=== PATIENT | female | born 1960 | race Caucasian/White ===

== ENCOUNTER → 2016-12-15 | Outpatient (CLI) | payer OTHER ==
--- NOTE | 2016-12-15 11:16 | REPMRS ---
Patient History The patient states she has not had a clinical breast exam in over a year. Patient is postmenopausal. No known family history of cancer. Patient states she had a bilateral breast reduction 5 years ago. [facility] Digital Mammo Screening Bilat: December 15, 2016 - Exam #: [id number] Bilateral CC and MLO view(s) were taken. Technologist: Lilli Erickson Technologist Prior study comparison: October 22, 2015, digital bilateral screening mammo, performed at [facility]. February 18, 2014, digital bilateral screening mammo, performed at [facility]. FINDINGS: The breast tissue is almost entirely fat. There has been no change in the appearance of the mammogram from the prior studies. There is no interval development of dominant mass, architectural distortion, or clustered microcalcification typical of malignancy. ASSESSMENT: BI-RADS/ACR category 1 mammogram. Negative. Recommendation Routine screening mammogram of both breasts in 1 year (for women over age 40). This mammogram was interpreted with the aid of an FDA-approved computer-aided dectection system. Electronically Signed By: Jeremy Tompkins MD 12/15/16 [id number]
== END ==
LOC: M RAD 09:39
PROVIDERS: ATTEND Family Medicine
DX: Z12.31 Encounter for screening mammogram for malignant neoplasm of breast (principal)

== ENCOUNTER → 2017-12-30 | Outpatient (CLI) | payer OTHER | LOC: M RAD 14:23 | DX: Z12.31 Encounter for screening mammogram for malignant neoplasm of breast (principal) | CPT/HCPCS: 77067 ==

== ENCOUNTER → 2019-02-27 | Outpatient (CLI) | payer OTHER ==
--- NOTE | 2019-02-27 10:58 | REPMRS ---
Patient History The patient states she has not had a clinical breast exam in over a year. No known family history of cancer. Digital Mammo Screening Bilat: February 27, 2019 - Exam #: [id number] Bilateral CC and MLO view(s) were taken. Technologist: Tracie Chino, Technologist Prior study comparison: December 30, 2017, bilateral digital mammo screening bilat performed at [facility]. December 15, 2016, bilateral digital mammo screening bilat performed at [facility]. FINDINGS: The breast tissue is almost entirely fat. There has been no change in the appearance of the mammogram from the prior studies. There is no interval development of dominant mass, architectural distortion, or clustered microcalcification typical of malignancy. Assessment: BI-RADS/ACR category 1 mammogram. Negative Mammogram. Recommendation Routine screening mammogram of both breasts in 1 year (for women over age 40). This patient's Lifetime Breast Cancer RIsk is estimated at 6.9 %. This mammogram was interpreted with the aid of an FDA-approved computer-aided dectection system. Electronically Signed By: Jeremy Tompkins MD 02/27/19 [id number]
== END ==
LOC: M RAD 09:23
PROVIDERS: ATTEND Internal Medicine
DX: Z12.31 Encounter for screening mammogram for malignant neoplasm of breast (principal)

== ENCOUNTER 2019-04-16 06:56 | Day surgery (SDC) | payer OTHER ==
[~2019-04-16] VITALS: Ht 172.7 cm; Wt 84.5 kg
[~2019-04-16 06:56] MED LIST: ASPI81TA26 PO; CELE1CAP9 PO; CLAR10CA3 PO; EPIN0.3I11; KP F1200 PO; MAGN400T PO; REST0.05 OU; VITA1CAP25
[2019-04-16] MEDS ORDERED: NS 1,000 ML IV ONE (07:00)
[2019-04-16] MEDS ORDERED: PROPOFOL 200 MG/20 ML VIAL As Ordered ONE ×2 (07:53→07:59)
[2019-04-16] MEDS ORDERED: LIDOCAINE 2% INJ 100 MG/5 ML SDV (FOR ANES.) As Ordered ONE (07:53)
--- NOTE | 2019-04-16 08:11 | ROOR ---
Patient Name: Kayce aZyas Procedure Date: 04/16/2019 7:46 AM Date of : 1960 Age: 59 Room: [facility] Gender: Female Note Status: Finalized Procedure: Total Colonoscopy to Cecum + ileoscopy Indications: Colon cancer screening in patient at increased risk: Family history of 1st-degree relative with colon polyps Providers: Jared Kessler MD Referring MD: PRETTY OLSEN MD Devvictorina Asher Requesting Provider: Medicines: Monitored Anesthesia Care Complications: No immediate complications. Procedure: Pre-Anesthesia Assessment: - The heart rate, respiratory rate, oxygen saturations, blood pressure, adequacy of pulmonary ventilation, and response to care were monitored throughout the procedure. The Colonoscope was introduced through the anus and advanced to the terminal ileum, with identification of the appendiceal orifice and IC valve. The colonoscopy was performed without difficulty. The patient tolerated the procedure well. The quality of the bowel preparation was excellent. Findings: The perianal and digital rectal examinations were normal. Non-bleeding internal hemorrhoids were found during retroflexion. The hemorrhoids were small and Grade I (internal hemorrhoids that do not prolapse). No other significant abnormalities were identified in a careful examination of the remainder of the colon. The remainder of the exam in the terminal ileum was normal. The cecum appeared normal. Impression: - Non-bleeding internal hemorrhoids. - The cecum is normal. - No specimens collected. - The examined portion of the ileum was normal. Recommendation: - Patient has a contact number available for emergencies. The signs and symptoms of potential delayed complications were discussed with the patient. Return to normal activities tomorrow. Written discharge instructions were provided to the patient. - High fiber diet. - Discharge patient to home. - Continue present medications. - Repeat colonoscopy in 5 years for screening purposes. - Return to referring physician. - The findings and recommendations were discussed with the patient's family. Jared Kessler MD Jared Kessler MD 04/16/2019 8:11:03 AM Electronically signed by Jared Kessler MD Number of Addenda: 0 Note Initiated On: 04/16/2019 7:46 AM Estimated Blood Loss: Estimated blood loss: none.
[2019-04-16 08:30] VITALS: BP 152/80
== END 2019-04-16 08:33 | disposition home or self-care (01) ==
LOC: M OPP 06:56
PROVIDERS: ATTEND Internal Medicine Gastroenterology
DX: K64.0 First degree hemorrhoids (principal); Z12.11 Encounter for screening for malignant neoplasm of colon; Z83.71 Family history of colonic polyps

== ENCOUNTER → 2019-04-24 | Outpatient (CLI) | payer OTHER ==
--- NOTE | 2019-04-24 23:29 | REP ---
Clinical: Thoracic aortic aneurysm. Technique: Axial noncontrast images from the thoracic inlet to the upper abdomen with coronal and sagittal re-formations. Findings: Lung duncan demonstrate very minimal basilar interstitial changes and trace lingular fibro atelectatic change. No focal consolidation, significant nodule, or mass lesion. No pleural effusion. No pneumothorax. Ascending thoracic aorta measures 3.8 cm maximal diameter. No significant atherosclerotic changes to the thoracic aorta or coronary arteries noted. No cardiomegaly. No pericardial effusion. No obvious adenopathy. Surrounding musculoskeletal structures demonstrate age-related changes without focal osseous abnormality. Limited upper abdomen demonstrates normal bilateral adrenal glands. Impression: 1. Ascending thoracic aorta measures 3.8 cm maximal diameter. 2. No acute mediastinal or pleuroparenchymal process appreciated. Electronically Signed by Chad Bangura MD 04/24/2019 11:21 P
== END ==
LOC: M RAD 16:29
PROVIDERS: ATTEND Internal Medicine Cardiovascular Disease
DX: Z86.79 Personal history of other diseases of the circulatory system (principal)

== ENCOUNTER 2019-05-08 08:56 | Day surgery (SDC) | payer OTHER ==
[~2019-05-08] VITALS: Ht 172.7 cm; Wt 85.3 kg
[2019-05-08 09:27] LABS: HEMATOCRIT 42.8 % (36.0-47.0); HEMOGLOBIN 14.6 g/dl (12.0-15.5); MEAN CORPUSCULAR HEMOGLOBIN 32.3 pg (27.0-33.0); MEAN CORPUSCULAR HGB CONC 34.1 g/dl (32.0-36.5); MEAN CORPUSCULAR VOLUME 94.7 fl (80.0-96.0); PLATELET COUNT, AUTOMATED 255 10^3/uL (150-450); RED BLOOD COUNT 4.52 10^6/uL (4.00-5.40); WHITE BLOOD COUNT 4.8 10^3/uL (4.0-10.0)
[2019-05-08] MEDS: LR 1,000 ML IV ONE (10:07)
[2019-05-08 10:09] LABS: HCG, SERUM QUALITATIVE NEGATIVE (NEGATIVE)
[2019-05-08] MEDS ORDERED: KETOROLAC 60 MG/2 ML VIAL (J1885) As Ordered ONE (13:04)
[2019-05-08] MEDS ORDERED: MIDAZOLAM INJ 2 MG/2 ML VIAL (J2250) As Ordered ONE (13:04)
[2019-05-08] MEDS ORDERED: dexameTHASONE 4 MG/ML 1ML VIAL (J1100) As Ordered ONE (13:04)
[2019-05-08] MEDS ORDERED: PROPOFOL 200 MG/20 ML VIAL As Ordered ONE (13:04)
[2019-05-08] MEDS ORDERED: fentaNYL 250 MCG/5 ML INJECTION (J3010) As Ordered ONE (13:04)
[2019-05-08] MEDS ORDERED: LIDOCAINE 2% INJ 100 MG/5 ML SDV (FOR ANES.) As Ordered ONE (13:04)
[2019-05-08] MEDS ORDERED: ONDANSETRON 4MG/2ML VIAL (J2405) As Ordered ONE (13:04)
[2019-05-08] MEDS: LIDOCAINE W/EPINEPHRINE 1% 20ML VIAL As Ordered ONE (13:15)
[2019-05-08] MEDS ORDERED: PERCOCET 5MG/325MG TAB As Ordered ONE (13:39)
[2019-05-08] MEDS: PERCOCET 5MG/325MG TAB PO PRN (13:40)
[2019-05-08] MEDS ORDERED: KETOROLAC 30 MG/ML VIAL (J1885) IV ONE (13:45)
[2019-05-08] MEDS ORDERED: PERCOCET 5MG/325MG TAB PO PRN (13:45)
[2019-05-08] MEDS ORDERED: METOCLOPRAMIDE INJ 10MG/2ML VIAL (J2765) IV PRN (13:45)
[2019-05-08] MEDS ORDERED: fentaNYL 100 MCG/2 ML INJECTION (J3010) IV PRN (13:45)
[2019-05-08] MEDS ORDERED: ONDANSETRON 4MG/2ML VIAL (J2405) IV PRN (13:45)
[2019-05-08] MEDS ORDERED: LR 1,000 ML IV SCH (13:45)
[2019-05-08 13:55] VITALS: BP 155/88
--- NOTE | 2019-05-10 08:18 | RO ---
DATE OF PROCEDURE: 05/08/2019 PREOPERATIVE DIAGNOSIS: Persistent cervical dysplasia. POSTOPERATIVE DIAGNOSIS: Persistent cervical dysplasia. PROCEDURE: Loop electrosurgical excision procedure. SURGEON: Dr. Fernandes MEDICAL RECEPTIONIST BILLER: None. ANESTHESIA: Monitored anesthesia care (MAC). FLUIDS: 600 mL lactated Ringer (LR). URINE OUTPUT: 20 mL. ESTIMATED BLOOD LOSS (EBL): 3 mL. COMPLICATIONS: None. ANTIBIOTICS: None indicated. DETAILED PROCEDURE DESCRIPTION: The risks, benefits, indications, and alternatives of the procedure were reviewed with the patient and informed consent was obtained. The patient was taken to the operating room where intravenous (IV) sedation was obtained without difficulty. The patient was then placed in lithotomy position using Sina stirrups. The patient was then prepped and draped in the usual sterile fashion, and the bladder was drained using an in and out catheter. A sterile Graves speculum was then placed into the vagina. The cervix was visualized. A paracervical block was then performed using approximately 10 mL of lidocaine with epinephrine. Lugol's solution was then copiously applied to the cervix and highlighted a lesion from the 4 to 7 o'clock position of the cervix as well as at the 12 o'clock position of the cervix. The LEEP device was then set to 60/60 blend and activated. The loop electrocautery wire was passed across the anterior cervical os with a single pass. Adequate tissue sample was obtained and sent to pathology for review and tagged the 12 o'clock position. Another pass of the loop electrocautery wire was then sent across the posterior ectocervical os and an adequate sample was then collected and sent to pathology for review. Superficial electrocoagulation of the cervical stroma was then performed and excellent hemostasis achieved. Monsel solution was then applied to the cervix. All instruments were then removed from the patient's vagina. At the completion of the case the sponge, instrument, and needle counts were correct times two. The patient tolerated the procedure well and was discharged home in stable condition. JOEY
== END 2019-05-08 14:15 | disposition home or self-care (01) ==
LOC: M SDC 08:56
PROVIDERS: ATTEND Obstetrics & Gynecology
DX: N87.0 Mild cervical dysplasia (principal); I77.89 Other specified disorders of arteries and arterioles; Z79.899 Other long term (current) drug therapy; Z79.82 Long term (current) use of aspirin; Z91.030 Bee allergy status
CPT/HCPCS: 36415; 57461; 84703; 85027; 88307; J1100; J1885; J2250; J2405; J3010

== ENCOUNTER 2019-05-11 09:09 | Emergency (ER) | payer OTHER ==
[~2019-05-11] VITALS: Ht 172.7 cm; Wt 86.6 kg
[2019-05-11 09:09] VITALS: BP 142/89
[2019-05-11] MEDS ORDERED: KEFL500C17 PO (10:13)
== END 2019-05-11 10:19 | disposition home or self-care (01) ==
LOC: M ED 09:09
DX: S60.222A Contusion of left hand, initial encounter (principal); X58.XXXA Exposure to other specified factors, initial encounter; Y92.9 Unspecified place or not applicable; Y93.9 Activity, unspecified; Y99.9 Unspecified external cause status; K21.9 Gastro-esophageal reflux disease without esophagitis; Z79.82 Long term (current) use of aspirin; Z79.899 Other long term (current) drug therapy; Z91.030 Bee allergy status

== ENCOUNTER → 2021-02-20 | Outpatient (CLI) | payer OTHER ==
[~2021-02-20] MED LIST changes: +KEFL500C17 PO; -MAGN400T PO; +MAGN400T3 PO
--- NOTE | 2021-02-23 08:46 | REPMRS ---
Patient History The patient states she has not had a clinical breast exam in over a year. Patient is postmenopausal. No known family history of cancer. Reductions of both breasts, 2010. No Hormone Replacement Therapy Patient states no breast complaints today. Patient has signed MRS History Sheet. Digital Woman Screen Mammo: February 20, 2021 - Exam #: [id number] Bilateral CC and MLO view(s) were taken. Technologist: Ana Johns, Technologist Prior study comparison: February 27, 2019, bilateral digital mammo screening bilat, performed at [facility]. December 30, 2017, bilateral digital mammo screening bilat, performed at [facility]. FINDINGS: There are scattered fibroglandular densities. Screening. Digital screening (2D) mammography was performed bilaterally in the CC and MLO projections. Additionally, breast tomosynthesis (3D mammography) was performed bilaterally in the CC and MLO projections. Todays exam was compared to the prior exams(s). By history, the patient has no complaints of a palpable breast abnormality or other significant breast complaints. The breasts are unchanged in size and shape. There are no kevin-soft tissue densities or spiculated masses. There is no internal architectural distortion. Once again, stable benign appearing calcifications are seen.There are no suspicious kevin-calcific clusters. Skin thickening or nipple retraction is not present. IMPRESSION: BI-RADS Category 2- Benign Findings(s). There is no evidence of malignant alteration of the breasts. Followup examination recommended in one year. The Volpara volumetric breast density category is B, there are scattered areas of fibroglandular density. This mammogram was read with the assistance of myQaa,an FDA approved computer aided detection system for mammography. Negative x-ray reports should not delay surgical consultation if a dominant or clinically suspicious mass is present. The lifetime Tyrer-Cuzick score is 6.4% Not all breast cancers can be identified by mammography. Therefore, we recommend that you continue to perform regular breast self-examination and physical examination and then promptly contact your physician of any concerns or changes. Adenosis and dense breasts may obscure an underlying neoplasm. Assessment: BI-RADS/ACR category 2 mammogram. Benign Findings. Recommendation Routine screening mammogram of both breasts in 1 year. Electronically Signed By: Dev Mar DO 02/23/21 [id number]
== END ==
LOC: M WHC 14:02
PROVIDERS: ATTEND Emergency Medicine
DX: Z12.31 Encounter for screening mammogram for malignant neoplasm of breast (principal)

== ENCOUNTER 2021-07-14 05:57 | Day surgery (SDC) | payer OTHER ==
[~2021-07-14] VITALS: Ht 172.7 cm; Wt 81.6 kg
[~2021-07-14 05:57] MED LIST changes: +ALEV220T22 PO; +BIOT1000 PO; +POTA595T16 PO; +VITATAB74 PO; +ZINC1TAB2 PO
[2021-07-14] MEDS ORDERED: ACETAMINOPHEN 500 MG TAB PO SCH (06:00)
[2021-07-14] MEDS ORDERED: ACETAMINOPHEN *IV* 1,000 MG IV ONE ×2 (06:00)
[2021-07-14] MEDS ORDERED: IBUPROFEN 800 MG TAB PO SCH (06:00)
[2021-07-14] MEDS ORDERED: LR 1,000 ML IV ONE (06:00)
[2021-07-14] MEDS ORDERED: LIDOCAINE 1% MDV 20ML VIAL SQ PRN (06:00)
[2021-07-14 06:27] LABS: HEMATOCRIT 43.9 % (36.0-47.0); MEAN CORPUSCULAR HEMOGLOBIN 33.3 pg (27.0-33.0); MEAN CORPUSCULAR HGB CONC 34.2 g/dl (32.0-36.5); MEAN CORPUSCULAR VOLUME 97.6 fl (80.0-96.0); PLATELET COUNT, AUTOMATED 272 10^3/uL (150-450); WHITE BLOOD COUNT 5.7 10^3/uL (4.0-10.0)
[2021-07-14 07:00] LABS: ALBUMIN 3.5 GM/DL (3.2-5.2); ALT/SGPT 24 U/L (12-78); BILIRUBIN,TOTAL 0.5 MG/DL (0.2-1.0); BLOOD UREA NITROGEN 15 MG/DL (7-18); CARBON DIOXIDE LEVEL 27 MEQ/L (21-32); CHLORIDE LEVEL 113 MEQ/L (98-107); CREATININE FOR GFR 0.84 MG/DL (0.55-1.30); GLOMERULAR FILTRATION RATE > 60.0 (>45); GLUCOSE, FASTING 94 MG/DL (70-100); POTASSIUM SERUM 4.1 MEQ/L (3.5-5.1); SODIUM LEVEL 144 MEQ/L (136-145); TOTAL PROTEIN 7.1 GM/DL (6.4-8.2)
[2021-07-14] MEDS ORDERED: LIDOCAINE W/EPINEPHRINE 1% 20ML VIAL As Ordered ONE ×3 (07:08→07:11)
[2021-07-14] MEDS ORDERED: IODINE STRONG SOLN 15 ML BTL As Ordered ONE (07:12)
[2021-07-14] MEDS ORDERED: fentaNYL 100 MCG/2 ML INJECTION (J3010) As Ordered ONE (07:54)
[2021-07-14] MEDS ORDERED: dexameTHASONE 4 MG/ML 1ML VIAL (J1100 PER 1MG) As Ordered ONE (07:54)
[2021-07-14] MEDS ORDERED: ACETAMINOPHEN 1000MG 100ML IV BTL (OFIRMEV) (J0131 PER 10MG) As Ordered ONE (07:54)
[2021-07-14] MEDS ORDERED: propofoL 200 MG/20 ML VIAL As Ordered ONE (07:54)
[2021-07-14] MEDS ORDERED: LIDOCAINE 2% 100MG/5ML SDV (FOR ANES.) As Ordered ONE (07:54)
[2021-07-14] MEDS ORDERED: MIDAZOLAM INJ 2MG/2ML VIAL (J2250 PER 1MG) As Ordered ONE (07:54)
[2021-07-14] MEDS ORDERED: KETOROLAC 60MG 2ML VIAL As Ordered ONE (07:54)
[2021-07-14] MEDS ORDERED: ONDANSETRON 4MG/2ML VIAL As Ordered ONE (07:54)
[2021-07-14] MEDS ORDERED: oxyCODONE 5MG TAB PO PRN (08:45)
[2021-07-14] MEDS ORDERED: LR 1,000 ML IV SCH (08:45)
[2021-07-14 10:27] VITALS: BP 125/79
--- NOTE | 2021-07-14 11:11 | POST-OPPD ---
Postoperative Procedure Note Date Of Procedure: Jul 14, 2021 PREOPERATIVE DIAGNOSIS: SIDNEY 3 POSTOPERATIVE DIAGNOSIS: SIDNEY 3 PROCEDURE: cervical conization SURGEON: Gary Vazquez DO JOINT RUNNER: Yesenia Dow MD ANESTHESIA: LMA ESTIMATED BLOOD LOSS: 50cc FINDINGS: cervix was almost flush with the vaginal wall and appeared scarred and overall white, conization performed, additional sliver of margin taken at 3 and 6 o clock. Hemostatic with the aid of cautery, monsels, and stay sutures. SPECIMENS: cervical cone tagged a 12 o clock, 3 o clock margin, 6 o clock margin COMPLICATIONS: none POSTOPERATIVE CONDITION: stable GARY VAZQUEZ DO Jul 14, 2021 11:11
--- NOTE | 2021-07-14 11:18 | ROOPDOC ---
[facility] Report Of Operation Report of Operation PREOPERATIVE DIAGNOSIS: SIDNEY 3 POSTOPERATIVE DIAGNOSIS: SIDNEY 3 PROCEDURE: cervical conization SURGEON: aGry Vazquez DO RED LEADER: Yesenia Dow MD ANESTHESIA: LMA ESTIMATED BLOOD LOSS: 50cc FINDINGS: cervix was almost flush with the vaginal wall and appeared scarred and overall white, conization performed, additional sliver of margin taken at 3 and 6 o clock. Hemostatic with the aid of cautery, monsels, and stay sutures. SPECIMENS: cervical cone tagged a 12 o clock, 3 o clock margin, 6 o clock margin COMPLICATIONS: none POSTOPERATIVE CONDITION: stable OPERATIVE NOTE: The risks, benefits and alternatives of the procedure were discussed and written consent obtained. The patient was taken to the OR where LMA anesthesia was performed. She was positioned in low lithotomy with the yellow fins and her arms out. The urethra was cleansed with iodine and the bladder drained. A final time out was performed. A weighted speculum was placed and the lateral cervix was tagged with 0-vicryl stay sutures bilaterally. Acetic acid was applied to the cervix. The cervix appeared overall whitish in color and was almost flush with the vaginal wall. Lidocine 1% with epinepherine was injected circumferentially around the cervix. Using an 11 blade the transitional zone was excised in a cone shaped fashion, the curved donaldson scissors were used to truncate the base. The specimen was tagged a 12 o clock. Additional slivers were taken at the 3 and 6 o clock margin and sent for pathology. The surgical bed was cauterized, monsels applied, and the stay sutures tied together. The resulting surgical site was hemostatic. There were no complications. The sponge, lap, and needle counts were correct. The patient was transferred to recovery in stable condition. GARY VAZQUEZ DO Jul 14, 2021 11:18
== END 2021-07-14 10:30 | disposition home or self-care (01) ==
LOC: M SDC 05:57
PROVIDERS: ATTEND Obstetrics & Gynecology
DX: N87.1 Moderate cervical dysplasia (principal); Z91.030 Bee allergy status; F17.218 Nicotine dependence, cigarettes, with other nicotine-induced disorders; Z79.82 Long term (current) use of aspirin; Z79.899 Other long term (current) drug therapy
CPT/HCPCS: 36415; 57520; 80053; 81025; 85027; 88307; J0131; J1100; J1885; J2250; J2405; J3010

== ENCOUNTER 2021-09-22 06:02 | Day surgery (SDC) | payer OTHER ==
[~2021-09-22] VITALS: Ht 172.7 cm; Wt 80.3 kg
[~2021-09-22 06:02] MED LIST changes: +ACET1TAB55; +ACETAMINOPHEN *IV* 1,000 MG IV ONE; +CVS5000S2 SL; +D 1010002 PO; +GABAPENTIN 300 MG CAP PO ONE; +IBUP-1022; +K2 P1TAB PO; +LR 1,000 ML IV ONE; -MAGN400T3 PO; +MAGN400T33; +MAGN400T33 PO; +OXYC-517; +SCOPOLAMINE 1MG TRANSDERMAL PATCH TOP ONE; +ceFAZolin SOD 2 GM in IV 1 EA IV ONE
[2021-09-22 06:36] LABS: HEMATOCRIT 43.8 % (36.0-47.0); HEMOGLOBIN 14.6 g/dl (12.0-15.5); MEAN CORPUSCULAR HEMOGLOBIN 32.7 pg (27.0-33.0); MEAN CORPUSCULAR HGB CONC 33.3 g/dl (32.0-36.5); PLATELET COUNT, AUTOMATED 264 10^3/uL (150-450); RED BLOOD COUNT 4.47 10^6/uL (4.00-5.40); WHITE BLOOD COUNT 4.6 10^3/uL (4.0-10.0)
[2021-09-22 07:05] LABS: ALBUMIN 3.6 GM/DL (3.2-5.2); ALT/SGPT 23 U/L (12-78); BILIRUBIN,TOTAL 0.6 MG/DL (0.2-1.0); BLOOD UREA NITROGEN 14 MG/DL (7-18); CALCIUM LEVEL 8.6 MG/DL (8.8-10.2); CARBON DIOXIDE LEVEL 26 MEQ/L (21-32); CHLORIDE LEVEL 109 MEQ/L (98-107); CREATININE FOR GFR 0.86 MG/DL (0.55-1.30); GLOMERULAR FILTRATION RATE > 60.0 (>45); GLUCOSE, FASTING 96 MG/DL (70-100); POTASSIUM SERUM 3.8 MEQ/L (3.5-5.1); SODIUM LEVEL 140 MEQ/L (136-145); TOTAL PROTEIN 7.1 GM/DL (6.4-8.2)
[2021-09-22] MEDS ORDERED: fentaNYL 100 MCG/2 ML INJECTION As Ordered ONE (07:12)
[2021-09-22] MEDS ORDERED: MIDAZOLAM INJ 2MG/2ML VIAL (J2250 PER 1MG) As Ordered ONE (07:12)
[2021-09-22] MEDS ORDERED: ROCURONIUM BROMIDE 50 MG/5 ML VIAL As Ordered ONE (07:13)
[2021-09-22] MEDS ORDERED: dexameTHASONE 4 MG/ML 1ML VIAL (J1100 PER 1MG) As Ordered ONE (07:13)
[2021-09-22] MEDS ORDERED: LIDOCAINE 2% 100MG/5ML SDV (FOR ANES.) As Ordered ONE (07:13)
[2021-09-22] MEDS ORDERED: ONDANSETRON 4MG/2ML VIAL As Ordered ONE (07:13)
[2021-09-22] MEDS ORDERED: propofoL 200 MG/20 ML VIAL As Ordered ONE (07:13)
[2021-09-22] MEDS ORDERED: LIDOCAINE 1% SDV 30ML VIAL As Ordered ONE (07:15)
[2021-09-22] MEDS ORDERED: ACETAMINOPHEN 1000MG 100ML IV BTL (OFIRMEV) (J0131 PER 10MG) As Ordered ONE (07:45)
[2021-09-22] MEDS ORDERED: HYDROmorphone HCL 2MG/ML 1ML VIAL As Ordered ONE (07:48)
[2021-09-22] MEDS ORDERED: METOCLOPRAMIDE INJ 10MG/2ML VIAL (J2765 PER 1) As Ordered ONE (07:50)
[2021-09-22] MEDS ORDERED: KETOROLAC 60MG 2ML VIAL As Ordered ONE (07:51)
[2021-09-22] MEDS ORDERED: SUGAMMADEX SODIUM 500 MG/5 ML VIAL (BRIDION) As Ordered ONE (07:51)
[2021-09-22] MEDS ORDERED: HYDROMORPHONE HCL 0.5 MG/ 0.5 ML SYRINGE (J1170 PER 1) IV PRN (09:50)
[2021-09-22] MEDS ORDERED: oxyCODONE 5MG TAB PO PRN ×3 (09:50→09:55)
[2021-09-22] MEDS ORDERED: fentaNYL 100 MCG/2 ML INJECTION IV PRN (09:50)
[2021-09-22] MEDS ORDERED: ONDANSETRON 4MG/2ML VIAL IV PRN (09:50)
[2021-09-22] MEDS ORDERED: LR 1,000 ML IV SCH (09:50)
[2021-09-22 12:27] VITALS: BP 126/79
== END 2021-09-22 12:27 | disposition home or self-care (01) ==
LOC: M SDC 06:02 → M OR 06:02 → UNDOADMIN 06:02 → EDSTATUS 07:30 → M SDC 12:27
PROVIDERS: ATTEND Obstetrics & Gynecology
DX: N85.8 Other specified noninflammatory disorders of uterus (principal); M16.11 Unilateral primary osteoarthritis, right hip; F41.9 Anxiety disorder, unspecified; I51.7 Cardiomegaly; M54.50 Low back pain, unspecified; F17.210 Nicotine dependence, cigarettes, uncomplicated; Z91.030 Bee allergy status; Z79.899 Other long term (current) drug therapy
CPT/HCPCS: 36415; 58260; 80053; 85027; 86850; 86900; 86901; 88300; 88307; 93005; J0131; J0690; J1100; J1170; J1885; J2250; J2405; J2765; J3010

== ENCOUNTER → 2021-12-11 | Outpatient (CLI) | payer OTHER ==
[~2021-12-11] MED LIST changes: -ACETAMINOPHEN *IV* 1,000 MG IV ONE; -GABAPENTIN 300 MG CAP PO ONE; +ISOVUE-300 61% 50ML VIAL As Ordered ONE; +LIDOCAINE 1% MDV 20ML VIAL As Ordered ONE; -LR 1,000 ML IV ONE; -SCOPOLAMINE 1MG TRANSDERMAL PATCH TOP ONE; -ceFAZolin SOD 2 GM in IV 1 EA IV ONE; +methylPREDNISolone 80MG/ML SUSP 1ML VIAL (J1040) As Ordered ONE
== END ==
LOC: M RADPRO 12:48
PROVIDERS: ATTEND Physician Assistant Surgical
DX: M16.11 Unilateral primary osteoarthritis, right hip (principal)
CPT/HCPCS: 20610; 77002; J1040; Q9967

== ENCOUNTER → 2022-03-24 | Outpatient (CLI) | payer OTHER ==
[~2022-03-24] MED LIST changes: -ISOVUE-300 61% 50ML VIAL As Ordered ONE; -LIDOCAINE 1% MDV 20ML VIAL As Ordered ONE; -methylPREDNISolone 80MG/ML SUSP 1ML VIAL (J1040) As Ordered ONE
== END ==
LOC: M WHC 12:42
PROVIDERS: ATTEND Student in an Organized Health Care Education/Training Program
DX: Z12.31 Encounter for screening mammogram for malignant neoplasm of breast (principal); M85.851 Other specified disorders of bone density and structure, right thigh; M85.852 Other specified disorders of bone density and structure, left thigh

== ENCOUNTER → 2022-09-13 | Outpatient (CLI) | payer OTHER ==
[~2022-09-13] MED LIST changes: +ISOVUE-300 61% 50ML VIAL ONE; +LIDOCAINE 1% MDV 20ML VIAL ONE; +methylPREDNISolone 80MG/ML SUSP 1ML VIAL ONE
== END ==
LOC: M PLAIMG 14:31
PROVIDERS: ATTEND Physician Assistant Surgical
DX: M16.11 Unilateral primary osteoarthritis, right hip (principal); M25.551 Pain in right hip
CPT/HCPCS: 20610; 76000; J1040

== ENCOUNTER → 2023-01-25 | Outpatient (CLI) | payer OTHER ==
[~2023-01-25] MED LIST changes: -ISOVUE-300 61% 50ML VIAL ONE; -LIDOCAINE 1% MDV 20ML VIAL ONE; -methylPREDNISolone 80MG/ML SUSP 1ML VIAL ONE
== END ==
LOC: M RAD 08:34
PROVIDERS: ATTEND Student in an Organized Health Care Education/Training Program
DX: R10.816 Epigastric abdominal tenderness (principal)

== ENCOUNTER → 2023-02-24 | Outpatient (CLI) | payer OTHER ==
[~2023-02-24] MED LIST changes: +GASTROGRAFIN SOLUTION 30ML As Ordered ONE; +ISOVUE-370 76% 100ML VIAL As Ordered ONE
== END ==
LOC: M RAD 13:29
PROVIDERS: ATTEND Student in an Organized Health Care Education/Training Program
DX: R19.7 Diarrhea, unspecified (principal)
CPT/HCPCS: 74178; Q9963; Q9967

== ENCOUNTER → 2023-04-26 | Outpatient (CLI) | payer OTHER ==
[~2023-04-26] MED LIST changes: -GASTROGRAFIN SOLUTION 30ML As Ordered ONE; -ISOVUE-370 76% 100ML VIAL As Ordered ONE
== END ==
LOC: M RAD 14:37
DX: M46.98 Unspecified inflammatory spondylopathy, sacral and sacrococcygeal region (principal); Z96.641 Presence of right artificial hip joint

== ENCOUNTER → 2023-09-27 | Outpatient (CLI) | payer OTHER ==
[~2023-09-27] MED LIST changes: +CELE0.09 PO; -CELE1CAP9 PO
== END ==
LOC: M WHC 07:53
PROVIDERS: ATTEND Family Medicine
DX: Z12.31 Encounter for screening mammogram for malignant neoplasm of breast (principal)

== ENCOUNTER → 2023-11-07 | Outpatient (CLI) | payer OTHER ==
[~2023-11-07] MED LIST changes: +PROHANCE 279.3MG/ML 15ML VIAL ONE
== END ==
LOC: M PLAIMG 13:43
PROVIDERS: ATTEND Physician Assistant
DX: H90.A31 Mixed conductive and sensorineural hearing loss, unilateral, right ear with restricted hearing on the contralateral side (principal)
CPT/HCPCS: 70553; A9576

== ENCOUNTER → 2023-12-07 | Outpatient (REF) | payer OTHER ==
[~2023-12-07] MED LIST changes: -PROHANCE 279.3MG/ML 15ML VIAL ONE
[2023-12-07 19:36] LABS: Trichomonas vaginalis (AMP) NOT DETECTED (NEGATIVE)
[2023-12-07 19:59] LABS: GC DNA AMPLIFICATION NEGATIVE (NEGATIVE)
== END ==
LOC: M SFHCWAGY 17:08
PROVIDERS: ATTEND Nurse Practitioner Family
DX: Z11.3 Encounter for screening for infections with a predominantly sexual mode of transmission (principal); Z11.51 Encounter for screening for human papillomavirus (HPV); Z12.72 Encounter for screening for malignant neoplasm of vagina
CPT/HCPCS: 87624; 87661; 87810; 87850; G0123

== ENCOUNTER 2024-06-07 10:39 | Day surgery (SDC) | payer OTHER ==
[~2024-06-07] VITALS: Ht 172.7 cm; Wt 81.6 kg
[~2024-06-07 10:39] MED LIST changes: +LOSA50TA28 PO; +ROSU20TA61 PO
[2024-06-07] MEDS: NS 1,000 ML IV ONE (11:09)
[2024-06-07] MEDS ORDERED: LIDOCAINE 2% 100MG/5ML SDV (FOR ANES.) As Ordered ONE (11:27)
[2024-06-07] MEDS ORDERED: propofoL 200 MG/20 ML VIAL As Ordered ONE (11:27)
[2024-06-07 11:55] VITALS: TEMP 97.3
[2024-06-07 12:19] VITALS: BP 142/86; O2SAT 99
== END 2024-06-07 12:24 | disposition home or self-care (01) ==
LOC: M SDC 10:39
PROVIDERS: ATTEND Surgery
DX: Z12.11 Encounter for screening for malignant neoplasm of colon (principal); Z83.719 Family history of colon polyps, unspecified; I10 Essential (primary) hypertension; E78.00 Pure hypercholesterolemia, unspecified; I77.89 Other specified disorders of arteries and arterioles; Z79.899 Other long term (current) drug therapy; Z91.030 Bee allergy status; Z90.49 Acquired absence of other specified parts of digestive tract; Z87.891 Personal history of nicotine dependence; Z90.710 Acquired absence of both cervix and uterus

== ENCOUNTER → 2025-02-19 | Outpatient (CLI) | payer OTHER ==
[~2025-02-19] MED LIST changes: -ROSU20TA61 PO; +ROSU20TA86 PO
== END ==
LOC: M EKG 13:38
PROVIDERS: ATTEND Internal Medicine
DX: R00.2 Palpitations (principal)